=== PATIENT | female | born 1945 | race Caucasian/White ===

== ENCOUNTER 2017-04-13 13:10 | Outpatient (CLI) | payer OTHER, MEDICARE ==
[~2017-04-13 13:10] MED LIST: ATORVASTATIN CA40 MG PO; CENTRUM SILVER PO; COLACE100 MG PO; FLUTICASONE PR50 MCG; HYCET1 ML PO; MIRALAX EQUIVAL17 GM PO; NORTRIPTYLINE H25 MG PO; OMEPRAZOLE20 M1 PO; OXYBUTYNIN CHLOR5 MG PO; VICODIN HP1 TA1 PO; VITAMIN D-31000 UNIT PO
--- NOTE | 2017-04-17 09:00 | DIAGNOSTIC IMAGING REPORT ---
PROCEDURE: MG BILATERAL SCREENING W/CAD INDICATION: SCREENING, paternal grandmother with a history of breast cancer. TECHNIQUE: Bilateral CC and MLO digital views. COMPARISON: Mammograms of 04/07/2016, 12/28/2015 and 08/03/2013. FINDINGS: Computer-aided detection applied. Mild dense. No change. IMPRESSION: 1. Negative mammogram RESULT CODE: 1- Negative. A. A negative report should not delay biopsy if a dominant or clinically suspicious mass is present. 10-15% of cancers are not identified by x-ray. B. A negative report may reinforce clinical impression. C. Adenosis and dense breasts may obscure an underlying neoplasm. D. False positive reports average 6-10%. E.. A yearly screening mammogram is recommended. A reminder letter will be scheduled.
== END 2017-04-13 23:00 ==
LOC: MAM SRH 13:10
DX: Z12.31 Encounter for screening mammogram for malignant neoplasm of breast (principal)